=== PATIENT | female | born 1955 | race Caucasian/White ===

== ENCOUNTER → 2018-08-20 | Outpatient (REF) | payer MEDICARE ==
[~2018-08-20] MED LIST: ACETTAB3 OR; BRILINTA90 MG PO; LIPITOR20 M1 PO; LISINOPRIL20 MG PO; LORTAB 10 OR; LORTAB 5 PO; METFORMIN500 MG PO; METHOCARBAM750 MG OR; METOPROL TAR25 MG PO; NAPROSYN500 MG PO
== END | disposition home or self-care (01) ==
LOC: STRESS 13:58 → NUCMED 14:45
PROVIDERS: ATTEND Internal Medicine
DX: I25.9 Chronic ischemic heart disease, unspecified (principal); I25.119 Atherosclerotic heart disease of native coronary artery with unspecified angina pectoris
CPT/HCPCS: A9502; J2785

== ENCOUNTER 2020-07-12 10:02 | Emergency (ER) | payer MEDICARE | END 2020-07-12 10:12 | disposition left against medical advice (07) | LOC: ED 10:02 → LWOBS 10:11 | DX: Z53.21 Procedure and treatment not carried out due to patient leaving prior to being seen by health care provider (principal) ==